=== PATIENT | male | born 1945 | race Asian ===

== ENCOUNTER 2017-05-09 10:41 | Emergency (ER) | payer OTHER ==
[~2017-05-09] VITALS: Ht 152.4 cm; Wt 50.0 kg
[2017-05-09] MEDS ORDERED: WARF2 PO (10:55)
[2017-05-09] MEDS ORDERED: PLOGLITAZONE (10:55)
[2017-05-09] MEDS ORDERED: ALBU8.5H8 IH (10:55)
[2017-05-09] MEDS ORDERED: TRAZ-144 PO (10:55)
[2017-05-09] MEDS ORDERED: ATOR10TA84 PO (10:55)
[2017-05-09] MEDS ORDERED: DUTA.5 PO (10:55)
[2017-05-09] MEDS ORDERED: BECL8.7A6 (10:55)
[2017-05-09] MEDS ORDERED: METO5TAB95 PO (10:55)
[2017-05-09] MEDS ORDERED: TAMS0.4C32 PO (10:55)
[2017-05-09] MEDS ORDERED: DOCU-275 PO (10:55)
[2017-05-09] MEDS ORDERED: VITAD1000 PO (10:55)
[2017-05-09] MEDS ORDERED: CARV3 PO (10:55)
[2017-05-09] MEDS ORDERED: PIOG15TA6 PO (10:59)
[2017-05-09 11:07] LABS: GLUCOSE,POINT OF CARE 137 MG/DL (70-110)
[2017-05-09 12:03] LABS: BASOPHILS # (AUTO) 0.04 K/uL (0.00-0.20); BASOPHILS % (AUTO) 0.6 % (0.0-2.0); EOSINOPHILS # (AUTO) 0.31 K/uL (0.00-0.70); EOSINOPHILS % (AUTO) 4.75 % (1.0-6.0); HEMATOCRIT 44.9 % (41-53); HEMOGLOBIN 14.7 g/dL (13.5-17.5); LYMPHOCYTES # (AUTO) 2.1 K/uL (1.0-4.8); LYMPHOCYTES % (AUTO) 32.1 % (22.0-44.0); MEAN CORPUSCULAR HEMOGLOBIN 31.2 pg (26.0-34.0); MEAN CORPUSCULAR HGB CONC 32.6 G/dL (31.0-37.0); MEAN CORPUSCULAR VOLUME 96 fL (80-100); MONOCYTES # (AUTO) 0.5 K/uL (0.1-1.0); MONOCYTES % (AUTO) 7.9 % (2.0-9.0); NEUTROPHILS # (AUTO) 3.5 K/uL (1.8-7.7); NEUTROPHILS % (AUTO) 54.6 % (40.0-70.0); PLATELET COUNT (AUTO) 172 K/uL (150-450); RED CELL DISTRIBUTION WIDTH 13.7 % (11.5-14.5); WHITE BLOOD COUNT (AUTO) 6.5 K/uL (4.5-11.0)
[2017-05-09 12:12] LABS: INR 3.3 (0.9-1.1); PROTHROMBIN TIME 35.4 SEC (9.4-11.6)
[2017-05-09 12:25] LABS: ANION GAP 13 mmol/L (8-16); B-TYPE NATRIURETIC PEPTIDE 343 pg/mL (0-100); CALCIUM, TOTAL 9.3 mg/dL (8.8-10.5); CARBON DIOXIDE 21 mmol/L (22-29); CHLORIDE 106 mmol/L (98-107); CREATININE 1.09 mg/dL (0.60-1.30); GLOMERULAR FILTR. RATE CALC > 60 mL/min (>60); POTASSIUM 3.7 mmol/L (3.5-5.1); SODIUM SERUM 140 mmol/L (136-145); UREA NITROGEN, BLOOD 19 mg/dL (7-18)
[2017-05-09 12:47] LABS: ALANINE AMINOTRANSFERASE 22 U/L (12-78); ASPARTATE AMINOTRANSFERASE 21 U/L (15-37); BILIRUBIN,TOTAL 0.9 mg/dL (0.1-1.0); TOTAL PROTEIN, SERUM 8.2 g/dL (6.4-8.2)
[2017-05-09] MEDS ORDERED: FUROSEMIDE 40 MG/4 ML VIAL IVP ONE (13:15)
[2017-05-09 16:00] VITALS: BP 150/92
== END 2017-05-09 17:10 | disposition short-term general hospital (02) ==
LOC: EMS 10:42
DX: I50.9 Heart failure, unspecified (principal); J90 Pleural effusion, not elsewhere classified; Z95.0 Presence of cardiac pacemaker
CPT/HCPCS: 71010; 80053; 82962; 83880; 84484; 85025; 85610; 93005; 93306; 96374; 99291; J1940